=== PATIENT | female | born 1980 | race Caucasian/White ===

== ENCOUNTER 2023-08-26 13:49 | Inpatient (IN) | payer OTHER ==
[2023-08-26 14:29] VITALS: BMI 17.5
[2023-08-26] MEDS ORDERED: diazePAM 5 MG TABLET ONE (15:00)
[2023-08-26] MEDS: diazePAM 5 MG TABLET PO ONE (15:04)
[2023-08-26] MEDS: BUPRENORPHINE/NALOXONE 4 MG/1 MG FILM PACKET SL SCH (15:09)
[2023-08-26] MEDS ORDERED: hydrOXYzine PAMOATE 25 MG CAPSULE (FP) PO ONE (15:16)
[2023-08-26] MEDS ORDERED: DICYCLOMINE HCL 10 MG CAPSULE PO PRN (15:46)
[2023-08-26] MEDS ORDERED: BENZONATATE 200 MG CAPSULE PO PRN (15:46)
[2023-08-26] MEDS ORDERED: BENZOCAINE/MENTHOL (CHLORASEPTIC ) LOZENGE MM PRN (15:46)
[2023-08-26] MEDS ORDERED: MAGNESIUM HYDROX 2400MG/30ML ORAL SUSPENSION 30 ML CUP PO PRN (15:46)
[2023-08-26] MEDS ORDERED: IBUPROFEN 400 MG TABLET (FP) PO PRN (15:46)
[2023-08-26] MEDS ORDERED: NALOXONE HCL (KLOXXADO) 8 MG SPRAY NS PRN (15:46)
[2023-08-26] MEDS ORDERED: BISMUTH SUBSALICYLATE 524 MG/30 ML PO PRN (15:46)
[2023-08-26] MEDS ORDERED: POLYETHYLENE GLYCOL (HEALTHYLAX) 3350 17 GM PACKET PO PRN (15:46)
[2023-08-26] MEDS ORDERED: ONDANSETRON *ODT* 4 MG TABLET SL PRN (15:46)
[2023-08-26] MEDS ORDERED: NALOXONE HCL 0.4 MG/ML VIAL IM PRN (15:46)
[2023-08-26] MEDS ORDERED: LOPERAMIDE HCL 2 MG CAPSULE PO PRN (15:46)
[2023-08-26] MEDS ORDERED: guaiFENesin 600 MG TABLET.ER (FP) PO PRN (15:46)
[2023-08-26] MEDS ORDERED: BUPRENORPHINE/NALOXONE 4 MG/1 MG FILM PACKET ONE (15:47)
[2023-08-26] MEDS ORDERED: IBUPROFEN 600 MG TABLET (FP) PO ONE (15:48)
[2023-08-26] MEDS: BUPRENORPHINE/NALOXONE 4 MG/1 MG FILM PACKET SL ONE (15:48)
[2023-08-26] MEDS: PRENATAL VITAMINS W/ FOLIC ACID TABLET (FP) PO SCH (16:18)
[2023-08-26] MEDS: IBUPROFEN 600 MG TABLET (FP) PO PRN (16:19)
[2023-08-26] MEDS: diazePAM 5 MG TABLET PO SCH (17:46)
[2023-08-26] MEDS: METHOCARBAMOL 500 MG TABLET PO PRN (17:46)
[2023-08-26] MEDS: levoFLOXacin 750 MG TABLET PO SCH (17:49)
[2023-08-26] MEDS: diazePAM 5 MG TABLET PO PRN (18:35)
[2023-08-26] MEDS ORDERED: cloNIDine HCL 0.1 MG TABLET PO PRN ×3 (19:52→19:55)
[2023-08-26] MEDS: THIAMINE HCL 100 MG TABLET (FP) PO SCH (21:34)
[2023-08-26] MEDS: MELATONIN 5 MG TABLETS PO SCH (21:34)
[2023-08-26] MEDS: CLINDAMYCIN HCL 150 MG CAPSULE (FP) PO SCH (23:07)
[2023-08-27] MEDS: hydrOXYzine PAMOATE 25 MG CAPSULE (FP) PO PRN ×2 (06:16→20:04)
[2023-08-27] MEDS: BUPRENORPHINE/NALOXONE 8 MG/2 MG FILM PACKET SL ONE (06:17)
[2023-08-27] MEDS: BUPRENORPHINE/NALOXONE 8 MG/2 MG FILM PACKET SL SCH (10:35)
[2023-08-27] MEDS: NICOTINE 14 MG/24 HOURS TOPICAL PATCH TD SCH (10:39)
[2023-08-27] MEDS: ACETAMINOPHEN 325 MG TABLET (FP) PO PRN ×2 (12:45→18:23)
[2023-08-27] MEDS: QUEtiapine FUMARATE 50 MG TABLET PO SCH (22:57)
[2023-08-28] MEDS: diazePAM 5 MG TABLET PO SCH (05:02)
[2023-08-28] MEDS: METHYL SALICYLATE/MENTHOL OINT 30 GM TUBE TP PRN (17:04)
[2023-08-29] MEDS: diazePAM 5 MG TABLET PO SCH (05:56)
[2023-08-29] MEDS: diazePAM 5 MG TABLET PO ONE (13:00)
[2023-08-29] MEDS: QUEtiapine FUMARATE 50 MG TABLET PO ONE (21:07)
[2023-08-29] MEDS: QUEtiapine FUMARATE 200 MG TABLET PO SCH (21:13)
[2023-08-29] MEDS: GABAPENTIN 100 MG CAPSULE PO SCH (21:13)
[2023-08-29] MEDS: MAG HYDROX/AL HYDROX/SIMETH 30 ML UNIT-DOSE CUP PO PRN (21:48)
[2023-08-29] MEDS ORDERED: QUEtiapine FUMARATE 100 MG TABLET (FP) PO SCH (22:00)
[2023-08-29] MEDS ORDERED: GABAPENTIN 100 MG CAPSULE PO SCH (22:00)
[2023-08-30] MEDS: diazePAM 5 MG TABLET PO ONE ×2 (05:46→12:12)
[2023-08-30] MEDS: QUEtiapine FUMARATE 50 MG TABLET PO SCH (09:18)
[2023-08-30] MEDS: GABAPENTIN 300 MG CAPSULE PO SCH (13:27)
[2023-08-30] MEDS ORDERED: QUEtiapine FUMARATE 300 MG TABLET PO SCH (22:00)
[2023-08-30] MEDS: QUEtiapine FUMARATE 200 MG TABLET PO SCH (22:39)
[2023-08-31 12:58] VITALS: BP 109/78; PULSE 95; RESP 16; TEMP 98.4
== END 2023-08-31 12:31 | disposition other institution (70) | DRG 773 ==
LOC: YASAS 13:49 → Y3N 16:45
PROVIDERS: ADMIT Allergy & Immunology; ATTEND Surgery
PROC: HZ2ZZZZ Detoxification Services for Substance Abuse Treatment (ICD-10-PCS; principal; 2023-08-26)
DX: F11.23 Opioid dependence with withdrawal (principal); F10.230 Alcohol dependence with withdrawal, uncomplicated; F13.230 Sedative, hypnotic or anxiolytic dependence with withdrawal, uncomplicated; F17.210 Nicotine dependence, cigarettes, uncomplicated; F31.9 Bipolar disorder, unspecified; F41.8 Other specified anxiety disorders; U07.1 COVID-19; Z28.310 Unvaccinated for COVID-19; Z28.9 Immunization not carried out for unspecified reason; Z86.61 Personal history of infections of the central nervous system; Z87.39 Personal history of other diseases of the musculoskeletal system and connective tissue; Z88.0 Allergy status to penicillin
CPT/HCPCS: 80305; 81025; 87635; 87811; 93005; 93010

== ENCOUNTER 2024-06-22 16:51 | Inpatient (IN) | payer OTHER ==
[2024-06-22 17:23] VITALS: BMI 23.8
[2024-06-22] MEDS ORDERED: BENZONATATE 200 MG CAPSULE PO PRN (18:59)
[2024-06-22] MEDS ORDERED: ONDANSETRON *ODT* 4 MG TABLET SL PRN (18:59)
[2024-06-22] MEDS ORDERED: MAG HYDROX/AL HYDROX/SIMETH 30 ML UNIT-DOSE CUP PO PRN (18:59)
[2024-06-22] MEDS ORDERED: methaDONE HCL 10 MG TABLET (FOR DETOX USE ONLY) PO PRN (18:59)
[2024-06-22] MEDS ORDERED: LOPERAMIDE HCL 2 MG CAPSULE PO PRN (18:59)
[2024-06-22] MEDS ORDERED: guaiFENesin 600 MG TABLET.ER (FP) PO PRN (18:59)
[2024-06-22] MEDS ORDERED: IBUPROFEN 400 MG TABLET (FP) PO PRN (18:59)
[2024-06-22] MEDS ORDERED: BENZOCAINE/MENTHOL (CHLORASEPTIC ) LOZENGE MM PRN (18:59)
[2024-06-22] MEDS ORDERED: cloNIDine HCL 0.1 MG TABLET PO PRN (18:59)
[2024-06-22] MEDS ORDERED: BISMUTH SUBSALICYLATE 524 MG/30 ML PO PRN (18:59)
[2024-06-22] MEDS ORDERED: MAGNESIUM HYDROX 2400MG/30ML ORAL SUSPENSION 30 ML CUP PO PRN (18:59)
[2024-06-22] MEDS ORDERED: NALOXONE (NARCAN) HCL 4 MG/0.1 ML SPRAY NS PRN (18:59)
[2024-06-22] MEDS ORDERED: POLYETHYLENE GLYCOL (HEALTHYLAX) 3350 17 GM PACKET PO PRN (18:59)
[2024-06-22] MEDS ORDERED: methaDONE HCL 10 MG TABLET (FOR DETOX USE ONLY) ONE (19:58)
[2024-06-22] MEDS: methaDONE HCL 10 MG TABLET (FOR DETOX USE ONLY) PO ONE (20:03)
[2024-06-22] MEDS ORDERED: diazePAM 5 MG TABLET ONE (23:47)
[2024-06-22] MEDS ORDERED: levETIRAcetam 500 MG TABLET (FP) PO ONE (23:48)
[2024-06-22] MEDS ORDERED: MELATONIN 5 MG TABLETS ONE (23:48)
[2024-06-22] MEDS: levETIRAcetam 500 MG TABLET (FP) PO SCH (23:53)
[2024-06-22] MEDS: MELATONIN 5 MG TABLETS PO SCH (23:53)
[2024-06-22] MEDS: THIAMINE 100 MG TABLET PO SCH (23:56)
[2024-06-22] MEDS: diazePAM 5 MG TABLET PO SCH (23:56)
[2024-06-23] MEDS ORDERED: diazePAM 5 MG TABLET ONE (05:54)
[2024-06-23] MEDS ORDERED: methaDONE HCL 10 MG TABLET (FOR DETOX USE ONLY) ONE (09:13)
[2024-06-23] MEDS ORDERED: levETIRAcetam 500 MG TABLET (FP) PO ONE (09:13)
[2024-06-23] MEDS ORDERED: PRENATAL VITAMINS W/ FOLIC ACID TABLET (FP) PO ONE (09:14)
[2024-06-23] MEDS: PRENATAL VITAMINS W/ FOLIC ACID TABLET (FP) PO SCH (09:17)
[2024-06-23] MEDS: DICYCLOMINE HCL 10 MG CAPSULE PO PRN (15:08)
[2024-06-23] MEDS: diazePAM 5 MG TABLET PO PRN (15:08)
[2024-06-23] MEDS ORDERED: NICOTINE POLACRILEX 2 MG GUM BUC PRN (19:05)
[2024-06-23] MEDS: IBUPROFEN 600 MG TABLET (FP) PO PRN (19:43)
[2024-06-23] MEDS ORDERED: PRAZOSIN HCL 1 MG CAPSULE PO SCH (22:00)
[2024-06-23] MEDS: PRAZOSIN HCL 1 MG CAPSULE PO SCH (22:15)
[2024-06-23] MEDS: GABAPENTIN 100 MG CAPSULE PO SCH (22:16)
[2024-06-23] MEDS: QUEtiapine FUMARATE 100 MG TABLET (FP) PO SCH (22:16)
[2024-06-24] MEDS: diazePAM 5 MG TABLET PO SCH (05:13)
[2024-06-24] MEDS: CITALOPRAM HYDROBROMIDE 20 MG TABLET PO SCH (09:54)
[2024-06-24] MEDS: NICOTINE 14 MG/24 HOURS TOPICAL PATCH TD SCH (09:54)
[2024-06-24] MEDS: methaDONE HCL 10 MG TABLET (FOR DETOX USE ONLY) PO ONE (09:54)
[2024-06-24] MEDS: ACETAMINOPHEN 325 MG TABLET (FP) PO PRN (22:11)
[2024-06-25] MEDS: diazePAM 5 MG TABLET PO SCH (05:43)
[2024-06-25] MEDS: METHOCARBAMOL 500 MG TABLET PO PRN (15:53)
[2024-06-25] MEDS: hydrOXYzine PAMOATE 25 MG CAPSULE (FP) PO PRN (15:53)
[2024-06-26] MEDS: diazePAM 5 MG TABLET PO ONE (06:01)
[2024-06-26] MEDS: methaDONE HCL 10 MG TABLET (FOR DETOX USE ONLY) PO ONE (09:51)
[2024-06-27] MEDS: NALOXONE (NYS OPIOID OVERDOSE PROGRAM) 4 MG/0.1 ML SPRAY NS SCH (08:55)
[2024-06-27 11:42] LABS: POTASSIUM 3.8 mmol/L (3.5-5.1)
[2024-06-27 11:43] LABS: HEMATOCRIT 34.4 % (32.4-45.2); MCHC 29.2 g/dl (32.0-36.0); MEAN CELL VOLUME 64.5 fl (80-96); MEAN PLT VOLUME 8.5 fl (7.5-11.1); PLATELET COUNT 307 10^3/uL (134-434); RBC 5.33 M/mm3 (3.60-5.2); RDW 19.9 % (11.6-15.6)
[2024-06-27 11:46] LABS: MCH 18.8 pg (25.7-33.7)
[2024-06-27 11:51] LABS: BLOOD UREA NITROGEN 23.1 mg/dL (7-18)
[2024-06-27 11:55] LABS: CREATININE 0.5 mg/dL (0.55-1.3)
[2024-06-27 11:56] LABS: BILIRUBIN,TOTAL 0.1 mg/dL (0.2-1)
[2024-06-27 11:57] LABS: TOT PROT 6.7 g/dl (6.4-8.2)
[2024-06-27] MEDS ORDERED: LORazepam 2 MG/ML SDV VIAL ONE (12:44)
[2024-06-27] MEDS: LORazepam 2 MG/ML SDV VIAL IM ONE (13:46)
[2024-06-27] MEDS: levETIRAcetam 500 MG TABLET (FP) PO ONE (13:48)
[2024-06-27] MEDS: hydrOXYzine PAMOATE 50 MG CAPSULE (FP) PO ONE (18:03)
[2024-06-28] MEDS: NALOXONE (NYS OPIOID OVERDOSE PROGRAM) 4 MG/0.1 ML SPRAY NS SCH (08:40)
[2024-06-28 09:15] VITALS: BP 111/64; PULSE 74; RESP 16; TEMP 97.6
== END 2024-06-28 13:31 | disposition home or self-care (01) | DRG 773 ==
LOC: YASAS 16:51 → Y3N 06-23 10:39
PROVIDERS: ADMIT Allergy & Immunology; ATTEND Allergy & Immunology
PROC: HZ2ZZZZ Detoxification Services for Substance Abuse Treatment (ICD-10-PCS; principal; 2024-06-23)
DX: F11.23 Opioid dependence with withdrawal (principal); F10.230 Alcohol dependence with withdrawal, uncomplicated; F14.10 Cocaine abuse, uncomplicated; F17.210 Nicotine dependence, cigarettes, uncomplicated; F31.9 Bipolar disorder, unspecified; F19.282 Other psychoactive substance dependence with psychoactive substance-induced sleep disorder; F19.280 Other psychoactive substance dependence with psychoactive substance-induced anxiety disorder; F19.24 Other psychoactive substance dependence with psychoactive substance-induced mood disorder; F41.9 Anxiety disorder, unspecified; F43.10 Post-traumatic stress disorder, unspecified; F42.9 Obsessive-compulsive disorder, unspecified; B18.2 Chronic viral hepatitis C; R56.9 Unspecified convulsions; Z56.0 Unemployment, unspecified; Z59.02 Unsheltered homelessness
CPT/HCPCS: 36415; 80053; 80305; 80307; 81025; 82962; 85027; 93005; 93010

== ENCOUNTER 2024-10-10 09:03 | Inpatient (IN) | payer OTHER ==
[2024-10-10] MEDS ORDERED: BENZOCAINE/MENTHOL (CHLORASEPTIC ) LOZENGE MM PRN (10:29)
[2024-10-10] MEDS ORDERED: POLYETHYLENE GLYCOL (HEALTHYLAX) 3350 17 GM PACKET PO PRN (10:29)
[2024-10-10] MEDS ORDERED: BISMUTH SUBSALICYLATE 524 MG/30 ML PO PRN (10:29)
[2024-10-10] MEDS ORDERED: MAGNESIUM HYDROX 2400MG/30ML ORAL SUSPENSION 30 ML CUP PO PRN (10:29)
[2024-10-10] MEDS ORDERED: DICYCLOMINE HCL 10 MG CAPSULE PO PRN (10:29)
[2024-10-10] MEDS ORDERED: LOPERAMIDE HCL 2 MG CAPSULE PO PRN (10:29)
[2024-10-10] MEDS ORDERED: ONDANSETRON *ODT* 4 MG TABLET SL PRN (10:29)
[2024-10-10] MEDS ORDERED: BENZONATATE 200 MG CAPSULE PO PRN (10:29)
[2024-10-10] MEDS ORDERED: NALOXONE (NARCAN) HCL 4 MG/0.1 ML SPRAY NS PRN (10:29)
[2024-10-10] MEDS ORDERED: guaiFENesin 600 MG TABLET.ER (FP) PO PRN (10:29)
[2024-10-10] MEDS ORDERED: MAG HYDROX/AL HYDROX/SIMETH 30 ML UNIT-DOSE CUP PO PRN (10:29)
[2024-10-10] MEDS ORDERED: methaDONE HCL 10 MG TABLET (FOR DETOX USE ONLY) ONE (11:44)
[2024-10-10] MEDS ORDERED: LORazepam 1 MG TABLET ONE (11:45)
[2024-10-10] MEDS: methaDONE HCL 10 MG TABLET PO ONE (11:47)
[2024-10-10] MEDS: LORazepam 2 MG TABLET PO SCH (11:48)
[2024-10-10] MEDS ORDERED: methaDONE HCL 10 MG TABLET PO PRN (12:30)
[2024-10-10 13:09] VITALS: BMI 23.6
[2024-10-10] MEDS: ACAMPROSATE CALCIUM 333 MG TABLET.DR PO SCH (14:40)
[2024-10-10] MEDS: cloNIDine HCL 0.1 MG TABLET PO SCH (14:40)
[2024-10-10] MEDS: GABAPENTIN 300 MG CAPSULE PO SCH (14:40)
[2024-10-10] MEDS: levETIRAcetam 500 MG TABLET (FP) PO SCH (22:56)
[2024-10-10] MEDS: MELATONIN 5 MG TABLETS PO SCH (22:57)
[2024-10-10] MEDS: THIAMINE 100 MG TABLET PO SCH (22:57)
[2024-10-10] MEDS: METHOCARBAMOL 500 MG TABLET PO PRN (22:57)
[2024-10-11] MEDS: PRENATAL VITAMINS W/ FOLIC ACID TABLET (FP) PO SCH (10:08)
[2024-10-11] MEDS: methaDONE 40 MG, methaDONE 10 MG PO ONE (10:12)
[2024-10-11 11:43] LABS: HEMATOCRIT 39.3 % (34.1-44.9); HEMOGLOBIN 11.4 g/dL (11.2-15.7); MEAN CELL VOLUME 70.9 fl (79.4-94.8); MEAN PLT VOLUME 10.6 fl (9.4-12.3); PLATELET COUNT 347 x10^3/uL (182-369); RDW 18.4 % (12.2-17.1)
[2024-10-11 12:14] LABS: POTASSIUM 4.7 mmol/L (3.5-5.1)
[2024-10-11 12:22] LABS: CALCIUM 9.6 mg/dL (8.5-10.1)
[2024-10-11 12:23] LABS: BLOOD UREA NITROGEN 23.1 mg/dL (7-18)
[2024-10-11 12:25] LABS: CREATININE 0.6 mg/dL (0.55-1.3)
[2024-10-11 12:27] LABS: BILIRUBIN,TOTAL 0.4 mg/dL (0.2-1); TOT PROT 7.3 g/dl (6.4-8.2)
[2024-10-11] MEDS: CITALOPRAM HYDROBROMIDE 20 MG TABLET PO SCH (15:29)
[2024-10-11] MEDS: GABAPENTIN 300 MG CAPSULE PO SCH (15:30)
[2024-10-11] MEDS: QUEtiapine FUMARATE 50 MG TABLET PO SCH (22:06)
[2024-10-11] MEDS: NICOTINE POLACRILEX 2 MG GUM BUC PRN (22:09)
[2024-10-11] MEDS: IBUPROFEN 600 MG TABLET (FP) PO PRN (22:23)
[2024-10-12] MEDS: LORazepam 1 MG TABLET PO SCH (05:47)
[2024-10-12] MEDS: LORazepam 1 MG TABLET PO PRN (07:11)
[2024-10-12] MEDS: cloNIDine HCL 0.1 MG TABLET PO PRN (07:11)
[2024-10-12] MEDS: methaDONE 40 MG, methaDONE 20 MG PO ONE (09:30)
[2024-10-12] MEDS: hydrOXYzine PAMOATE 25 MG CAPSULE (FP) PO PRN (17:33)
[2024-10-13] MEDS: IBUPROFEN 400 MG TABLET (FP) PO PRN (04:53)
[2024-10-13] MEDS: LORazepam 0.5 MG TABLET PO SCH (05:50)
[2024-10-13] MEDS: methaDONE 40 MG, methaDONE 30 MG PO ONE (10:50)
[2024-10-13] MEDS: LORazepam 0.5 MG TABLET PO PRN (13:33)
[2024-10-13] MEDS: ACETAMINOPHEN 325 MG TABLET (FP) PO PRN (17:34)
[2024-10-14] MEDS: LORazepam 0.5 MG TABLET PO ONE (05:50)
[2024-10-14] MEDS: methaDONE HCL 40 MG DISPERSABLE TABLET PO ONE (09:28)
[2024-10-14] MEDS: LORazepam 0.5 MG TABLET PO SCH (11:44)
[2024-10-14] MEDS ORDERED: IBUPROFEN 600 MG TABLET (FP) PO ONE (14:45)
[2024-10-15] MEDS: LORazepam 0.5 MG TABLET PO ONE (06:11)
[2024-10-15 08:50] VITALS: BP 124/86; PULSE 65; RESP 17; TEMP 97.5
[2024-10-15] MEDS ORDERED: methaDONE 80 MG, methaDONE 10 MG PO ONE (10:00)
== END 2024-10-15 09:06 | disposition home or self-care (01) | DRG 773 ==
LOC: YASAS 09:03 → Y6N 12:10
PROVIDERS: ADMIT Allergy & Immunology; ATTEND Family Medicine Addiction Medicine
PROC: HZ2ZZZZ Detoxification Services for Substance Abuse Treatment (ICD-10-PCS; principal; 2024-10-10)
DX: F11.23 Opioid dependence with withdrawal (principal); F10.230 Alcohol dependence with withdrawal, uncomplicated; F13.230 Sedative, hypnotic or anxiolytic dependence with withdrawal, uncomplicated; F14.20 Cocaine dependence, uncomplicated; F17.210 Nicotine dependence, cigarettes, uncomplicated; F19.282 Other psychoactive substance dependence with psychoactive substance-induced sleep disorder; F19.280 Other psychoactive substance dependence with psychoactive substance-induced anxiety disorder; F31.9 Bipolar disorder, unspecified; F43.10 Post-traumatic stress disorder, unspecified; F41.9 Anxiety disorder, unspecified; Z86.19 Personal history of other infectious and parasitic diseases; Z88.0 Allergy status to penicillin
CPT/HCPCS: 36415; 80053; 80305; 80307; 81025; 85027; 86593; 86780; 86803; 87522; 93005; 93010